=== PATIENT | male | born 1980 | race Caucasian/White ===

== ENCOUNTER 2022-08-22 10:45 | Emergency (ER) | payer OTHER ==
[~2022-08-22] VITALS: Ht 170.2 cm; Wt 72.6 kg
--- NOTE | 2022-08-22 10:55 | NUR ---
Seizure precautions in place.
--- NOTE | 2022-08-22 11:04 | NUR ---
MD at bedside for evaluation
[2022-08-22 11:17] LABS: HEMATOCRIT 48.4 % (36.7-47.1); MEAN CORPUSCULAR HEMOGLOBIN 29.8 uug (23.8-33.4); PLATELET COUNT (AUTO) 298 K/uL (152-348)
[2022-08-22 11:22] LABS: CREATININE 1.2 mg/dL (0.6-1.3); POTASSIUM 4.2 mmol/L (3.5-5.1)
[2022-08-22 11:28] LABS: BILIRUBIN,DIRECT 0.1 mg/dL (0.0-0.2); BILIRUBIN,TOTAL 0.4 mg/dL (0.2-1.0)
[2022-08-22] MEDS ORDERED: IV NS 1000 ML 1,000 ML IV ONE (11:30)
[2022-08-22 12:58] LABS: *AMPHETAMINE, URINE NEGATIVE (NEGATIVE); *CANNABINOID, URINE POSITIVE (NEGATIVE); *COCCAINE, URINE NEGATIVE (NEGATIVE); *OPIATE, URINE NEGATIVE (NEGATIVE); *PHENCYCLIDINE SCREEN,URINE NEGATIVE (NEGATIVE)
[2022-08-22 13:05] LABS: *BILIRUBIN,URIN NEGATIVE (NEGATIVE); *BLOOD, URINE TRACE (NEGATIVE); *CLARITY,URINE CLEAR (CLEAR); *COLOR,URINE YELLOW (YELLOW); *KETONES,URINE NEGATIVE (NEGATIVE); *UROBILINOGEN,URINE 0.2 E.U./dl (NORMAL); LEUKOCYTE ESTERASE ,URINE NEGATIVE (NEGATIVE); NITRITE, URINE NEGATIVE (NEGATIVE); UGLUCOSE NEGATIVE (NEGATIVE)
[2022-08-22 13:08] LABS: BACTERIA,URINE NONE SEEN /HPF (NONE SEEN); RBC,URINE NONE SEEN /HPF (0-3); SQUAMOUS EPITHELIAL CELL,UR NONE SEEN /HPF (NONE SEEN); WBC,URINE NONE SEEN /HPF (0-3)
--- NOTE | 2022-08-22 13:45 | NUR ---
Patient resting in bed. Easily arousable. No shortness of breath or respiratory distress at the moment.
[2022-08-22] MEDS ORDERED: INSULIN REGULAR, HUMAN 5 UNIT in IV NORMAL SALINE 100 ML IV ONE ×2 (14:45)
--- NOTE | 2022-08-22 15:13 | NUR ---
Per MD, recheck blood sugar in 20 minutes and hold off on insulin order for now.
[2022-08-22 16:40] VITALS: BP 118/69
--- NOTE | 2022-08-22 16:40 | NUR ---
Patient discharged to home in stable condition. Written and verbal after care instructions given. Patient verbalizes understanding of instructions. Stressed follow up or return to ER for worsening s/s.
== END 2022-08-22 16:42 | disposition home or self-care (01) ==
LOC: ER 10:45 → EDBD 10:45 → ER 16:42
DX: R56.9 Unspecified convulsions (principal); F17.210 Nicotine dependence, cigarettes, uncomplicated; E10.9 Type 1 diabetes mellitus without complications; R03.0 Elevated blood-pressure reading, without diagnosis of hypertension; D72.829 Elevated white blood cell count, unspecified
CPT/HCPCS: 99285; 96360; 70450; 80076; 80048; 82962 ×3; 85025; 84484; 36415; 93005; 83605 ×2; 83930; 80307; 81001; J7040; A4663